=== PATIENT | male | born 1950 | race Caucasian/White ===

== ENCOUNTER 2023-07-30 09:16 | Day surgery (SDC) | payer MEDICARE, OTHER ==
[2023-07-25 11:05] LABS: ALBUMIN 3.5 G/DL (3.4-5.0); ALKALINE PHOSPHATASE 56 IU/L (46-116); BLOOD UREA NITROGEN 19 MG/DL (7-18); BUN/CREATININE RATIO 17.6 (10.0-20.0); CALCIUM 8.8 MG/DL (8.5-10.1); CHLORIDE 102 MMOL/L (99-107); CREATININE 1.08 MG/DL (0.60-1.10); PRE OP ALT 61 U/L (30-65); PRE OP ANION GAP 7 (8-16); PRE OP AST 33 U/L (10-37); PRE OP BILIRUB, TOTAL 0.5 MG/DL (0.0-1.0); PRE OP GLUCOSE 97 MG/DL (70-104); PRE OP POTASSIUM 4.1 MMOL/L (3.4-5.1); PRE OP SODIUM 138 MMOL/L (135-145); TOTAL CARBON DIOXIDE 28.9 MMOL/L (24-32); TOTAL PROTEIN 6.9 G/DL (6.4-8.2); eGFR 67 ML/MIN
[2023-07-25 11:24] LABS: BASOPHILS # (AUTO) 0.1 X10'3 (0-0.2); BASOPHILS % (AUTO) 0.7 % (0-1); EOSINOPHILS # (AUTO) 0.1 X10'3 (0-0.9); EOSINOPHILS % (AUTO) 1.5 % (0-6); LYMPHOCYTES # (AUTO) 2.4 X10'3 (1.1-4.8); MEAN CORPUSCULAR VOLUME 90.9 FL (78-98); MEAN PLATELET VOLUME 9.6 FL (7.4-10.4); MONOCYTES # (AUTO) 0.7 X10'3 (0-0.9); MONOCYTES % (AUTO) 9.5 % (2-12); NEUTROPHILS % (AUTO) 55.3 % (42-75); PRE OP HEMATOCRIT 43.3 % (42.0-52.0); PRE OP HEMOGLOBIN 14.3 g/dL (14.0-17.9); PRE OP PLATELET COUNT 258 X10'3 (140-440); PRE OP WHITE BLOOD COUNT 7.2 10'3 (4.8-10.8); RED BLOOD COUNT 4.76 X10'6 (4.70-6.10); RED CELL DISTRIBUTION WIDTH 13.2 % (11.5-14.5)
[2023-07-30] VITALS (15 sets, daily range): BP systolic 142–168; BP diastolic 73–95; PULSE 68–92; RESP 10–15; TEMP 97.6; O2SAT 92–98
[~2023-07-30] VITALS: Ht 175.3 cm; Wt 103.0 kg
[~2023-07-30 09:16] MED LIST: CLOP75TA34 PO; LISI5TAB22 PO; ROSU10TA28 PO; cefazolin 2gm/D5W 100mL 100 ML IV ONE; famotidine 20mg tablet PO ONE; ringers solution, lacted 1,000 ML IV SCH
[2023-07-30] MEDS ORDERED: BUPIVAcaine/PF 2.5mg/ml (0.25%) 10ml vial ONE (10:17)
[2023-07-30] MEDS ORDERED: LIDOcaine 1% 30ml preserv. free vial ONE (10:17)
[2023-07-30] MEDS ORDERED: sevoflurane 250ml liquid IH ONE (10:22)
[2023-07-30] MEDS ORDERED: midazolam 1 mg/ML 2ml injection ONE (10:29)
[2023-07-30] MEDS ORDERED: ondansetron/PF 4mg/2ml inj IV PRN (10:40)
[2023-07-30] MEDS ORDERED: morphine 2 MG/ML inj. syringe IV PRN (10:40)
[2023-07-30] MEDS ORDERED: proCHLORperazine 10 MG/2 ml inj IV PRN (10:40)
[2023-07-30] MEDS ORDERED: ringers solution, lacted 1,000 ML IV SCH (10:40)
[2023-07-30] MEDS ORDERED: morphine 4 MG/ML inj SYRINge IV PRN (10:40)
[2023-07-30] MEDS ORDERED: acetaminophen 1,000mg/100ml IV 100 ML IV ONE (10:40)
[2023-07-30] MEDS ORDERED: hydrALAZINE 20mg/ml inj. IV PRN (10:40)
[2023-07-30] MEDS ORDERED: labetalol 20mg/4ml (5mg/ml) syringe IV PRN (10:40)
[2023-07-30] MEDS ORDERED: meperidine/PF 25mg/ml syringe IV PRN ×3 (10:40)
[2023-07-30] MEDS ORDERED: propofol inj 20 ML IV ONE (10:43)
[2023-07-30] MEDS ORDERED: rocuronium 10mg/ml inj IV ONE (10:43)
[2023-07-30] MEDS ORDERED: ondansetron/PF 4mg/2ml inj ONE (10:43)
[2023-07-30] MEDS ORDERED: LIDOcaine 2% (20mg/ml) 5ml vial ONE (10:43)
[2023-07-30] MEDS ORDERED: fentaNYL /PF 50mcg/ml 5ml ampule ONE (10:43)
[2023-07-30] MEDS ORDERED: dexamethasone sod phosphate 4mg/ml inj. ONE (10:43)
[2023-07-30] MEDS: BUPIVAcaine/PF 2.5mg/ml (0.25%) 10ml vial IJ ONE (11:04)
[2023-07-30] MEDS: LIDOcaine 1% 30ml preserv. free vial IJ ONE (11:06)
[2023-07-30] MEDS ORDERED: neostigmine methylsulfate 1 MG/ML 10ml vial ONE (11:51)
[2023-07-30] MEDS ORDERED: glycopyrrolate 0.2mg/ml inj ONE (11:51)
[2023-07-30] MEDS: HYDROcodone/acetaminophen 5mg/325mg tablet PO PRN (12:59)
== END 2023-07-30 14:33 | disposition home or self-care (01) ==
LOC: PAS 09:16
PROVIDERS: ATTEND Surgery
DX: K40.90 Unilateral inguinal hernia, without obstruction or gangrene, not specified as recurrent (principal); K42.9 Umbilical hernia without obstruction or gangrene; I10 Essential (primary) hypertension; E78.5 Hyperlipidemia, unspecified; M19.90 Unspecified osteoarthritis, unspecified site; Z79.899 Other long term (current) drug therapy; Z79.01 Long term (current) use of anticoagulants; Z98.41 Cataract extraction status, right eye; Z98.42 Cataract extraction status, left eye; Z98.890 Other specified postprocedural states; Z86.711 Personal history of pulmonary embolism; Z86.718 Personal history of other venous thrombosis and embolism; Z86.73 Personal history of transient ischemic attack (TIA), and cerebral infarction without residual deficits
CPT/HCPCS: 36415; 49591; 49650; 80053; 82948; 85025; 93005; C1781; J0690; J1100; J2250; J2405; J2704; J2710; J3010; J3490; J7030; J7120; Z7506; Z7508; Z7512; A4215; A4618; A7000